=== PATIENT | female | born 1950 | race Caucasian/White ===

== ENCOUNTER 2020-10-11 20:20 | Emergency (ER) | payer MEDICARE, BC ==
[2020-10-11] MEDS ORDERED: methylPREDNISolone SUCCINATE 125 MG/2 ML VIAL IVP STA (20:42)
[2020-10-11] MEDS ORDERED: diphenhydrAMINE INJ 50 MG/ML VIAL IVP STA (20:42)
[2020-10-11] MEDS ORDERED: TRANEXAMIC ACID 1,000 MG in SODIUM CHLORIDE 0.9% 100ML 100 ML IV STA (20:49)
[2020-10-11] MEDS ORDERED: TRANEXAMIC ACID 1,000 MG/10 ML VIAL ONE (20:50)
--- NOTE | 2020-10-11 20:55 | ED Physician Documentation ---
History of Present Illness - Stated complaint Stated Complaint: TONGUE SWELLING - Chief complaint Chief Complaint: Heent - History obtained from History obtained from: Patient - History of Present Illness Timing: Today Pain level max: 0 Pain level now: 0 - Additonal information Additional information: Patient is a 70-year-old female who presents to the emergency department with tongue swelling today. She states this started about 3 hours prior to arrival. Similar occurrence about 2 weeks ago. Resolved on its own. Did not seek care at that time. Only medication is aspirin. No other medications. No allergens. No itching. Nothing makes it better or worse. No difficulty breathing. She states that her lips do not feel swollen. No rash. No itching. Review of Systems Ten Systems: 10 systems reviewed and negative Constitutional: denies: Fever, Chills Ears: denies: Ear pain Nose: denies: Rhinorrhea / runny nose, Congestion Throat: denies: Sore throat Respiratory: denies: Dyspnea, Cough GI: denies: Vomiting, Diarrhea Skin: denies: Rash Musculoskeletal: denies: Neck pain, Back pain Neurologic: denies: Headache PD PAST MEDICAL HISTORY - Past Medical History Past Medical History: Yes Neuro: TIA : Other Other Past Medical History: bladder prolapse - Past Surgical History Past Surgical History: Yes General: Cholecystectomy - Present Medications Home Medications: Ambulatory Orders Medication Instructions Recorded Confirmed Aspirin [Show Low Aspirin] 81 mg PO DAILY 10/11/20 10/11/20 predniSONE [Deltasone] 40 mg PO DAILY #10 tablet 10/11/20 - Allergies Allergies/Adverse Reactions: Allergies Allergy/AdvReac Type Severity Reaction Status Date / Time No Known Drug Allergies Allergy Verified 10/11/20 20:24 - Social History Does the pt smoke?: No Smoking Status: Never smoker Does the pt drink ETOH?: Yes Does the pt have substance abuse?: No - Immunizations Immunizations are current?: Yes - POLST Patient has POLST: No PD ED PE NORMAL - Vitals Vital signs reviewed: Yes - General General: Alert and oriented X 3, No acute distress - HEENT HEENT: Moist mucous membranes, Other (mild tongue swelling, able to close her mouth completely, speak in clear full sentences. no stridor or wheezing. ) - Neck Neck: Supple, no meningeal sign - Cardiac Cardiac: RRR - Respiratory Respiratory: No respiratory distress, Clear bilaterally - Abdomen Abdomen: Soft, Non tender, Non distended - Derm Derm: Warm and dry, No rash - Extremities Extremities: No edema - Neuro Neuro: Alert and oriented X 3, diesel mechanic 2-12 intact, No motor deficit, No sensory deficit, Normal speech Results - Vitals Vitals: Vital Signs - 24 hr 10/11/20 10/11/20 20:25 20:27 Temperature 36.5 C 36.5 C Heart Rate 74 74 Respiratory 19 19 Rate Blood Pressure 150/100 H 150/100 H O2 Saturation 100 100 Oxygen O2 Source Room air PD MEDICAL DECISION MAKING - ED course Complexity details: re-evaluated patient, considered differential, d/w patient ED course: Patient given Solu-Medrol, Benadryl and tranexamic acid. Observed in the emergency department. Swelling resolved. Normal phonation. No trismus. No urticaria. Unclear etiology of her angioedema. Not on RICHARD inhibitor as. Does not appear allergic. No itching. No urticaria. Will likely need complement t esting and further work-up with a primary care provider. Patient will follow up with the doctor [facility] for this. She may need referral to an service tester as well. Patient counseled regarding signs and symptoms for which I believe and urgent re-evaluation would be necessary. Patient with good understanding of and agreement to plan and is comfortable going home at this time This document was made in part using voice recognition software. While efforts are made to proofread this document, sound alike and grammatical errors may occur. Departure - Departure Disposition: 01 Home, Self Care Clinical Impression: Angioedema Qualifiers: Encounter type: initial encounter Qualified Code(s): T78.3XXA - Angioneurotic edema, initial encounter Condition: Good Instructions: ED Angioedema Follow-Up: [facility] [Provider Group] [facility] [Provider Group] [facility] [Provider Group] Prescriptions: predniSONE [Deltasone] 40 mg PO DAILY #10 tablet Comments: The cause of your symptoms is unclear today. Please follow-up with your doctor for further care. You will likely need testing of serum complement. You may need to follow-up with an service tester as well. Return if you worsen
[2020-10-11 22:02] VITALS: BP 145/86
== END 2020-10-11 22:14 | disposition home or self-care (01) ==
LOC: ED 20:20
DX: T78.3XXA Angioneurotic edema, initial encounter (principal); Z79.82 Long term (current) use of aspirin
CPT/HCPCS: 96365; 96375; 99284; J1200